=== PATIENT | male | born 1940 | race Native Hawaiian/Other Pacific Islander ===

== ENCOUNTER 2017-10-23 11:10 | Outpatient (CLI) | payer OTHER ==
[~2017-10-23 11:10] MED LIST: ADVIL200 M1 PO; CLARITIN-D1 TA1 PO; FLUT0.05 NAS; GERITOL PO; IBUPROFEN IB200 MG PO; METOPRL/HCTZ1 TA1 PO; NEXIUM40 M1 PO; POTASSIUM CHLO20 ME1 PO; SIMV40TA57 PO; TAMSULOSIN0.4 MG PO
== END 2017-10-23 19:58 | disposition home or self-care (01) ==
LOC: CT 11:10
DX: J32.1 Chronic frontal sinusitis (principal); R51 Headache